=== PATIENT | female | born 2000 | race Caucasian/White ===

== ENCOUNTER 2019-04-27 06:13 | Emergency (ER) | payer OTHER ==
[~2019-04-27] VITALS: Ht 167.6 cm; Wt 127.0 kg
== END 2019-04-27 07:50 | disposition home or self-care (01) ==
LOC: ED 06:13
DX: S83.91XA Sprain of unspecified site of right knee, initial encounter (principal); X58.XXXA Exposure to other specified factors, initial encounter
CPT/HCPCS: 73560; 99283-25

== ENCOUNTER 2019-05-25 13:25 | Emergency (ER) | payer OTHER ==
[~2019-05-25] VITALS: Ht 167.6 cm; Wt 127.0 kg
--- OUTSIDE RECORDS SUMMARY | 2019-05-25 13:28 | XMS ---
PreManage Notification: YVES ROJAS Security Electrolysist Events No recent Security Events currently on file CRITERIA MET - [facility] - 2 Visits in 30 Days CARE PROVIDERS There are no care providers on record at this time. Jessica has no Care Guidelines for this patient. Lori VISIT COUNT (12 MO.) [address] [facility] Carney H. TOTAL 2 NOTE: Visits indicate total known visits. ED/C VISIT TRACKING (12 MO.) 05/25/2019 13:[address] [facility] TYPE: Emergency COMPLAINT: - FALL IMJURY 04/27/2019 06:14 [facility] [place] TYPE: Emergency COMPLAINT: - FALL/RIGHT KNEE INJ DIAGNOSES: - Exposure to other specified factors, initial encounter - Sprain of unspecified site of right knee, initial encounter - Pain in right knee INPATIENT VISIT TRACKING (12 MO.) No inpatient visits to display in this time frame [email or web address]
== END 2019-05-25 15:10 | disposition home or self-care (01) ==
LOC: ED 13:25
DX: S83.91XA Sprain of unspecified site of right knee, initial encounter (principal); W18.30XA Fall on same level, unspecified, initial encounter; Y99.0 Civilian activity done for income or pay
CPT/HCPCS: 99283

== ENCOUNTER 2021-03-16 12:24 | Emergency (ER) | payer OTHER ==
[~2021-03-16] VITALS: Ht 167.6 cm; Wt 158.8 kg
--- OUTSIDE RECORDS SUMMARY | 2021-03-16 12:26 | XMS ---
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 Jessica has no Care Guidelines for this patient. Lori VISIT COUNT (12 MO.) 1 [facility] TOTAL 1 NOTE: Visits indicate total known visits. ED/C VISIT TRACKING (12 MO.) 03/16/2021 12:25 [facility] [place] TYPE: Emergency COMPLAINT: - FALL, KNEE AND HAND PAIN INPATIENT VISIT TRACKING (12 MO.) No inpatient visits to display in this time frame [email or web address]
[2021-03-16] MEDS ORDERED: ESTROGEN-METHY1 EACH PO (13:16)
[2021-03-16] MEDS ORDERED: ESCITALOPRAM OX10 MG PO (13:16)
[2021-03-16] MEDS ORDERED: HYDROCODON-ACE1 EA10 PO (14:34)
== END 2021-03-16 14:40 | disposition home or self-care (01) ==
LOC: ED 12:24
DX: S63.502A Unspecified sprain of left wrist, initial encounter (principal); S83.91XA Sprain of unspecified site of right knee, initial encounter; W01.10XA Fall on same level from slipping, tripping and stumbling with subsequent striking against unspecified object, initial encounter; K21.9 Gastro-esophageal reflux disease without esophagitis
CPT/HCPCS: 73110; 73560; 99283-25

== ENCOUNTER 2021-05-16 19:47 | Emergency (ER) | payer OTHER ==
[~2021-05-16] VITALS: Ht 167.6 cm; Wt 161.9 kg
[~2021-05-16 19:47] MED LIST: ESCITALOPRAM OX10 MG PO; ESTROGEN-METHY1 EACH PO; HYDROCODON-ACE1 EA10 PO
--- OUTSIDE RECORDS SUMMARY | 2021-05-16 19:50 | XMS ---
PreManage Notification: YVES ROJAS Security Early Interventionist Events No recent Security Events currently on file CRITERIA MET - PDMP - Group Notification CARE PROVIDERS [facility] 03/17/2021-Current PHONE: [phone] Jessica has no Care Guidelines for this patient. EJadyn VISIT COUNT (12 MO.) 2 [facility] TOTAL 2 NOTE: Visits indicate total known visits. ED/UCC VISIT TRACKING (12 MO.) 05/16/2021 19:47 [facility] [place] TYPE: Emergency COMPLAINT: - FLU SYMPTOMS 03/16/2021 12:[address] [facility] TYPE: Emergency COMPLAINT: - FALL, KNEE AND HAND PAIN DIAGNOSES: - Fall on same level from slipping, tripping and stumbling with subsequent striking against unspecified object, initial encounter - Pain in left wrist - Sprain of unspecified site of right knee, initial encounter - Gastro-esophageal reflux disease without esophagitis - Unspecified sprain of left wrist, initial encounter INPATIENT VISIT TRACKING (12 MO.) No inpatient visits to display in this time frame [email or web address]
[2021-05-16] MEDS ORDERED: PREMPRO PO (20:02)
[2021-05-16] MEDS ORDERED: GUAIFENESIN AC473 ML PO (21:55)
== END 2021-05-16 22:07 | disposition home or self-care (01) ==
LOC: ED 19:47
DX: U07.1 COVID-19 (principal); K21.9 Gastro-esophageal reflux disease without esophagitis; Z79.899 Other long term (current) drug therapy
CPT/HCPCS: 99283; C9803; U0003